=== PATIENT | female | born 1995 | race Caucasian/White ===

== ENCOUNTER 2018-05-27 21:29 | Emergency (ER) | payer OTHER, SELFPAY ==
[2018-05-27 21:32] VITALS: BP 107/89; PULSE 85; RESP 16; TEMP 36.9; O2SAT 100; BMI 21.4
--- NOTE | 2018-05-27 21:37 | ED.NAVMDI ---
HPI - Nausea/Vomiting/Diarrhea <SPRING Moreno - Last Filed: 05/27/18 22:13> General Chief complaint: Nausea/Vomiting/Diarrhea Stated complaint: Vomiting Time Seen by Provider: 05/27/18 21:30 History of Present Illness HPI Narrative: 23-year-old female here for complaint of nausea vomiting that started earlier this afternoon. She states that after she got off work this afternoon she had a couple episodes of vomiting and dry heaving. She denies any fevers or chills. No urinary symptoms. She denies any abdominal pain no flank pain. Last bowel movement was earlier today and was normal. She denies any abnormal vaginal discharge. She is currently on her menstrual cycle. She denies any recent travel. She denies any recent contacts that had similar type symptoms. She denies any changes in her diet She is able ambulate into the emergency room. No other concerns or complaints MD complaint: nausea and vomiting Onset (ago): hour(s) Related Data Home Medications Medication Instructions Recorded Confirmed Control 05/27/18 Previous Rx's Medication Instructions Recorded ondansetron [Zofran ODT] 4 mg PO TID PRN #5 tab 05/27/18 Allergies Allergy/AdvReac Type Severity Reaction Status Date / Time No Known Drug Allergies Allergy Verified 05/27/18 22:11 Review of Systems <SPRING Moreno - Last Filed: 05/27/18 22:13> Constitutional Denies chills, Denies fever(s), Denies lethargy and Denies weakness Eyes Denies change in vision, Denies eye discharge, Denies irritation and Denies loss of vision ENT Ears, Nose, Mouth, and Throat: Denies change in voice, Denies neck pain and Denies sore throat Cardiovascular Denies chest pain, Denies irregular heart rhythm, Denies lightheadedness, Denies palpitations, Denies dyspnea, Denies dyspnea on exertion and Denies orthopnea Respiratory Denies cough, Denies dyspnea, Denies dyspnea on exertion and Denies wheezing Gastrointestinal Gastrointestinal: Reports nausea and Reports vomiting Genitourinary Denies hematuria, Denies flank pain, Denies urinary incontinence and Denies urinary urgency Musculoskeletal Denies neck pain Integumentary/Breasts Denies pruritus, Denies erythema, Denies rash and Denies wounds Neurologic Denies confusion, Denies loss of vision and Denies weakness Psychiatric Denies anxiety, Denies confusion, Denies depression, Denies homicidal ideation and Denies suicidal ideation Endocrine Denies palpitations Hematologic/Lymphatic Denies easy bruising Allergic/Immunologic Denies wheezing Exam <SPRING Moreno - Last Filed: 05/27/18 22:13> Initial Vital Signs Initial Vital Signs: Vital Signs Temperature 98.4 F 05/27/18 21:32 Pulse Rate 85 05/27/18 21:32 Respiratory Rate 16 05/27/18 21:32 Blood Pressure 107/89 H 05/27/18 21:32 Pulse Oximetry 100 05/27/18 21:32 Const General: cooperative and well developed Nutritional Appearance: well nourished Orientation: alert, awake, oriented x3 and not confused HENMT Mouth: oral mucosae normal and moist mucous membranes Eyes Conjunctivae: conjunctivae normal Pupils: PERRL EOM: EOM intact bilaterally Resp Effort & Inspection: normal respiratory effort, able to speak in complete sentences, no respiratory distress and no use of accessory muscles Auscultation: clear to auscultation bilaterally, no rales, no rhonchi and no wheezes Cardio Rate: regular rate Rhythm: regular rhythm Heart Sounds: no click, no gallops, no murmurs and no rubs Pulses: normal peripheral pulses GI Inspection: non-distended Palpation: soft, no hepatosplenomegaly, No guarding, No pulsatile mass and No tender Auscultation: normal bowel sounds General: CVA tenderness Skin General: no rashes or lesions noted, No jaundice and No petechiae <Gus Deng DO - Last Filed: 05/27/18 23:22> Initial Vital Signs Initial Vital Signs: Vital Signs Temperature 98.4 F 05/27/18 21:32 Pulse Rate 85 05/27/18 21:32 Respiratory Rate 16 05/27/18 21:32 Blood Pressure 107/89 H 05/27/18 21:32 Pulse Oximetry 100 05/27/18 21:32 Course <SPRING Moreno - Last Filed: 05/27/18 22:13> Orders Ordered: Discontinued Medications Sodium Chloride (Normal Saline 0.9%) 1,000 mls @ 1,000 mls/hr IV BOLUS ONE Stop: 05/27/18 22:37 Last Infusion: 05/27/18 22:45 Dose: 0 mls/hr Admin: 05/27/18 21:51 Dose: 1,000 mls/hr Ondansetron HCl (Zofran) 4 mg IV NOW ONE Stop: 05/27/18 21:39 Last Admin: 05/27/18 21:51 Dose: 4 mg Ondansetron HCl (Zofran Odt Prepack) 1 bottle MISC SEEINSTR ONE Stop: 05/27/18 22:09 Last Admin: 05/27/18 22:13 Dose: 1 bottle Vital Signs - 8 hr 05/27/18 21:32 Temperature 98.4 F Pulse Rate 85 Respiratory Rate 16 Blood Pressure 107/89 H Pulse Oximetry 100 <Gus Deng DO - Last Filed: 05/27/18 23:22> Orders Ordered: Discontinued Medications Sodium Chloride (Normal Saline 0.9%) 1,000 mls @ 1,000 mls/hr IV BOLUS ONE Stop: 05/27/18 22:37 Last Infusion: 05/27/18 22:45 Dose: 0 mls/hr Admin: 05/27/18 21:51 Dose: 1,000 mls/hr Ondansetron HCl (Zofran) 4 mg IV NOW ONE Stop: 05/27/18 21:39 Last Admin: 05/27/18 21:51 Dose: 4 mg Ondansetron HCl (Zofran Odt Prepack) 1 bottle MISC SEEINSTR ONE Stop: 05/27/18 22:09 Last Admin: 05/27/18 22:13 Dose: 1 bottle Vital Signs - 8 hr 05/27/18 21:32 Temperature 98.4 F Pulse Rate 85 Respiratory Rate 16 Blood Pressure 107/89 H Pulse Oximetry 100 [facility] - Nausea/Vomiting/Diarrhea <SPRING Moreno - Last Filed: 05/27/18 22:13> [facility] Narrative Medical decision making narrative: Vital signs were normal. Urinalysis POC was obtained was negative for urinary tract infection. Urine was negative. Normal exam with no tenderness to the abdomen no CVA tenderness. Signs and symptoms presents as a viral illness. She felt better after receiving Zofran IV and fluids. She is prescribed Zofran for nausea. Follow up with primary care provider in next couple days for re-evaluation. For any worsening symptoms return to the emergency room. Discharge Plan Departure Patient Disposition: Home, Self-Care Clinical Impression: Nausea & vomiting Discharge Date/Time: 05/27/18 22:54 Interventions: ED Discharge Assessment Last Done: 05/27/18 23:11 Instructions: Nausea and Vomiting-Adult Activity Restrictions/Additional Instructions: Signs and symptoms presents as a viral illness. You have been prescribed Zofran to help with the nausea and to facilitate good hydration. Plenty of fluids. Slowly advance diet as tolerated starting with clear liquid fluids. Follow up with her primary care provider in the next couple of days for re-evaluation. For any worsening symptoms such as abdominal pain fevers or other complications return to the emergency room. Prescriptions: New ondansetron [Zofran ODT] 4 mg tablet,disintegrating 4 mg PO TID PRN (Reason: nausea and vomiting) Qty: 5 RF: 0 No Action Control RF: 0 Referrals: [facility] [Provider Group] Stand Alone Forms: Work/School Restrictions <Gus Deng DO - Last Filed: 05/27/18 23:22> Cosign ED Attending Joy Attestation: I was immediately available in the department for consultation. Documentation has been reviewed. I agree with assessment and plan.
[2018-05-27] MEDS: ONDANSETRON 4 MG/2 ML INJ IV (21:51)
[2018-05-27] MEDS: SODIUM CHLORIDE 0.9% 1,000 ML 1000 ML IV (21:51)
--- NOTE | 2018-05-27 22:04 | PC.NURSE ---
Severe nausea and vomiting - face covered by petichia caused by vomiting
[2018-05-27] MEDS: ONDANSETRON 4 MG ODT PREPACK 1 BOTTLE MISC (22:13)
== END 2018-05-27 22:54 | disposition home or self-care (01) ==
LOC: ED 22:46
PROVIDERS: Emergency Provider Nurse Practitioner Family
DX: R11.10 Vomiting, unspecified (principal)
CPT/HCPCS: 81003; 96361; 96374; 99283; 99284; J2405

== ENCOUNTER → 2018-12-12 14:15 | Outpatient (CLI) | payer OTHER, SELFPAY ==
--- NOTE | 2018-12-12 | DI.MRI.S_ITS ---
PROCEDURE: MR WRIST RT WO CON INDICATIONS: GANGLION RIGHT WRIST TECHNIQUE: Noncontrast coronal proton density fast spin echo and T2 fast spin echo with fat saturation; coronal 3-D gradient echo, axial T1 spin echo and T2 fast spin echo with fat saturation, sagittal T1 spin echo through the wrist. COMPARISON: None. FINDINGS: Image quality: Excellent. Bones and cartilage: The carpal bones are normally aligned. No bone marrow contusions or fractures. No evidence for avascular necrosis. Overlying cartilage surfaces appear normal. Carpal ligaments: The scapholunate and lunotriquetral ligaments appear intact. In the absence of intra-articular contrast, the extrinsic carpal ligaments are not well identified. On sagittal images, the pisohamate ligament appears intact. Triangular fibrocartilage complex: The triangular fibrocartilage appears intact. The adjacent meniscal homolog appears normal in the absence of intra-articular contrast. The extensor carpi ulnaris tendon is normal in location and morphology. Tendons and soft tissues: The carpal tunnel structures appear normal, including the median nerve. The ulnar nerve appears normal within Guyon's canal. All six extensor tendon compartments demonstrate normal morphology, without pathologic tendon sheath fluid. There is a fluid signal structure dorsal to the proximal capitate and is deep to the extensor digiti minimi tendon as well as extensor digitorum and indices tendons and measures approximately 10 x 4 x 4 mm in size, suggestive of a ganglion cyst in this area. IMPRESSION: 1. Suggestion of a 10 x 4 x 4 mm ganglion cyst over dorsal aspect of the proximal metacarpal bone at the level of proximal capitate and is deep to the extensor digiti minimi and extensor digitorum and indices tendons. 2. No marrow edema. No fracture or dislocation. 3. Wrist tendons and ligaments are grossly intact. Triangular fibrocartilage complex is intact. Dictated by: Dharmesh Tanner M.D. on 12/14/2018 at 9:53 Approved by: Dharmesh Tanner M.D. on 12/14/2018 at 10:19
== END ==
PROVIDERS: Visit Provider Nurse Practitioner Family
DX: M67.431 Ganglion, right wrist (principal)
CPT/HCPCS: 73221

== ENCOUNTER → 2019-01-08 12:25 | Outpatient (CLI) | payer OTHER, SELFPAY ==
--- NOTE | 2019-01-08 | DI.MRI.S_ITS ---
PROCEDURE: MR WRIST RT WO/W CON INDICATIONS: Ganglion, unspecified wrist TECHNIQUE: Noncontrast coronal proton density fast spin echo and T2 fast spin echo with fat saturation; coronal 3-D gradient echo, axial T1 spin echo and T2 fast spin echo with fat saturation, axial T1 spin echo with fat saturation, sagittal T1 spin echo through the wrist. Post-contrast axial, coronal, and sagittal T1 spin echo with fat saturation through the wrist. COMPARISON: [facility], MR, MR WRIST RT WO CON, 12/12/2018, 14:44. FINDINGS: Image quality: Excellent. Bones and cartilage: No suspicious osseous enhancement. The carpal bones are normally aligned. No bone marrow contusions or fractures. No evidence for avascular necrosis. Overlying cartilage surfaces appear normal. Carpal ligaments: The scapholunate and lunotriquetral ligaments appear intact. In the absence of intra-articular contrast, the extrinsic carpal ligaments are not well identified. On sagittal images, the pisohamate ligament appears intact. Triangular fibrocartilage complex: The triangular fibrocartilage appears intact. The adjacent meniscal homolog appears normal in the absence of intra-articular contrast. The extensor carpi ulnaris tendon is normal in location and morphology. Tendons and soft tissues: No suspicious soft tissue enhancement. The carpal tunnel structures appear normal, including the median nerve. The ulnar nerve appears normal within Guyon's canal. All six extensor tendon compartments demonstrate normal morphology, without pathologic tendon sheath fluid. No change in size of previously reported ganglion cyst at the dorsal aspect of the lunate and proximal capitate, measuring 11 x 3 mm (short axis image 15 series 10) by 5 mm in the cephalocaudad dimension. There is no associated enhancement. No internal enhancement. IMPRESSION: Redemonstration of ganglion cyst along the dorsal aspect of the carpus. No associated enhancement. Dictated by: Preston Mcdonald M.D. on 01/08/2019 at 14:35 Approved by: Preston Mcdonald M.D. on 01/08/2019 at 14:46
== END ==
PROVIDERS: PCP Nurse Practitioner Family; Visit Provider Nurse Practitioner Family
DX: M67.432 Ganglion, left wrist (principal)
CPT/HCPCS: 73223; A9579

== ENCOUNTER → 2019-03-01 14:02 | Outpatient (CLI) | payer OTHER, SELFPAY ==
[2019-03-01 15:51] LABS: Pregnancy Test Urine Negative (Negative)
== END ==
PROVIDERS: Visit Provider Dermatology
DX: Z79.899 Other long term (current) drug therapy (principal)
CPT/HCPCS: 81025